=== PATIENT | male | born 1985 | race Caucasian/White ===

== ENCOUNTER 2018-06-05 16:13 | Emergency (ER) | payer MEDICAID ==
--- NOTE | 2018-06-05 16:38 | EDPHY ---
HPI/HX/ROS/PE/MDM Narrative: CLINICAL IMPRESSION: Tender soft tissue mass right anterior thorax ASSESSMENT/PLAN: Patient is a 32-year-old male with no significant medical history who presents for concerns of tender soft tissue mass on his right anterior ribcage. Patient is afebrile and not toxic appearing, no acute distress. Physical exam reveals approximately 1.5 cm mobile, soft, tender soft tissue mass on the right inferior , anterior costal margin. There was no overlying erythema or fluctuance. No findings to suggest systemic infection, cellulitis, abscess, necrotizing skin infection or deep space infection. Query lipoma. Although we do not have one listed, he is well established with the [facility] as they are following abnormal laboratory studies secondary to being on Truvada; we reviewed his laboratory studies which were pertinent for leukocytosis with no left shift, transaminitis and positive cytomegalovirus and Rivera-Atkinson virus. We did not feel that laboratory studies needed to be obtained today. He is also in the process of establishing care with [facility]. He will call both facilities tomorrow morning to schedule follow-up and repeat examination. Return precautions discussed- he will return for fever, redness, swelling, warmth, or streaking around the wound, new lesions, extremity swelling, pain out of proportion or for any other new, worsening or worrisome symptoms. Patient verbalizes understanding and he is in agreement with plan. Case discussed with and patient seen by Dr. Richards. DIFFERENTIAL DX: Abscess, cellulitis, deep space infection, traumatic injury, muscle strain ED COURSE: 6:42 p.m.: Discussed with Dr. Richards 6:45 p.m.: Laboratory studies in patient's records reviewed, last obtained June 01. Patient with a leukocytosis however no left shift. Transaminitis. Positive for cytomegalovirus and Rivera-Atkinson virus. CHIEF COMPLAINT: Palpable tender mass right anterior, inferior chest HPI: Patient is a 32-year-old male with no significant medical history who presents to the emergency department with complaints of a tender palpable mass on his right anterior chest which he noticed yesterday. Patient has never experienced anything like this before, noticed some "swelling" with associated tenderness of what feels like a mass on his right anterior chest. He denies any redness, he has had no fevers or chills. He denies any chest pain, shortness of breath or abdominal pain. He felt that it might be a muscle strain however he does not recall any injury, denies any direct impact or trauma. Patient endorses he is current Lisa being followed by [facility] for PREP therapy which includes Truvada. He was discontinued approximately 2 and half weeks ago from Truvada secondary to abnormal laboratory results. Patient plans to follow up with [facility] this week for continued monitoring of his laboratory studies. PMH: Denies Pertinent Past Surgical History: Denies Family History: Noncontributory Social History: Denies smoking REVIEW OF SYSTEMS: All other systems negative Constitutional: No fever, no chills, appetite change. Eyes: No discharge, vision change ENT: No sore throat, congestion, ear pain. Cardiovascular: No chest pain, no palpitations. Respiratory: No cough, no shortness of breath. Gastrointestinal: No abdominal pain, no vomiting, diarrhea. Genitourinary: No hematuria, dysuria, or increased frequency Musculoskeletal: No back pain, joint swelling, joint pain, myalgias. Skin: No rashes, color change. Neurological: No headache, dizziness, weakness. PHYSICAL EXAM: General Appearance: Alert, oriented, appropriate, cooperative, NAD, well hydrated, non-toxic appearing, VSS, no hypoxia. HEENT: TMs are clear bilaterally no perforation or FB, no injection, no evidence of serous or mucopurulent otitis. Oropharynx clear is no erythema or exudates, no tonsillar hypertrophy or asymmetry. Dentition without abnormality. Eyes: PERRLA, no acute vision change, nystagmus, swelling, discharge, pain or photosensitivity. Conjunctiva pink, no pallor or injection Neck: Supple, nontender, no lymphadenopathy, no midline pain, FROM, no meningismus. Respiratory: There are no retractions, lungs are clear to auscultation. Cardiac: Regular rate and rhythm, no murmurs or gallops. Gastrointestinal: Abdomen is soft, nontender, bowel sounds normal, no masses/ hernia, no rigidity, guarding or focal peritoneal findings. Neurological: Alert and oriented x 3, CN 2-12 grossly intact, normal gait no ataxia, DTR's intact, normal sensation and strength Skin: Warm, dry, no rashes. Right anterior, inferior costal margin there is approximally 1.5 cm soft, mobile tender mass with no overlying erythema, induration and no fluctuance. Musculoskeletal: Extremities are symmetrical, full range of motion, no tenderness, deformity, swelling, or erythema. Psychiatric: Patient is oriented X 3, there is no agitation. PERC criteria Age less than 50, heart rate less than 100, SP a O2 greater than 95%, no unilateral leg swelling, no hemoptysis, no recent surgery or trauma and no hormone use. PERC negative No need for further workup, as <2% chance of PE. MEDICAL DECISION MAKING: Patient was seen with Dr. Richards. Diagnosis: Tender, soft soft tissue mass right chest. Summary: See Assessment and Plan for summary of ED visit Clinical lab tests: NA. Independent visualization of images, tracing, or specimens: NA. Decision to obtain medical records or history from someone other than the patient: No Review / Summarize previous medical records: Yes. Discussed patient with another provider: Yes, Dr. Richards. Patient Progress: Good, stable for discharge to home. (Zeny Hale) ED Course: This patient was seen and examined by me. He presents with a 1.5 cm mobile mass in the subcutaneous tissues over the right anterior lower ribs. No overlying erythema, warmth or tenderness. Likely lipoma, doubt abscess. I agree with the assessment and plan. (Claudia Richards) General Initial Vital Signs: Initial Vital Signs Temperature (C) 36.8 C 06/05/18 16:14 Heart Rate 86 06/05/18 16:14 Respiratory Rate 16 06/05/18 16:14 Blood Pressure 107/53 L 06/05/18 16:14 O2 Sat (%) 98 06/05/18 16:14 O2 Delivery Mode Room Air Allergies/Adverse Reactions: cefaclor [From Ceclor] Allergy (Unknown, Verified 06/05/18 16:20) Home Medications: Medication Instructions Recorded NK [No Known Home Meds] 06/05/18 Departure - Departure Disposition: Home, Routine, Self-Care Clinical Impression: Soft tissue mass Condition: Good Instructions: Soft Tissue Mass (ED) Additional Instructions: DISCHARGE INSTRUCTIONS FROM YOUR DOCTOR Thank you for visiting our emergency department today. Please keep in mind that discharge from the emergency department does not mean that there is nothing wrong - it simply means that we have not identified an emergency condition that requires further evaluation or treatment in the hospital. It is important that you establish care as previously recommended at [facility], please follow-up with [facility] tomorrow morning regarding your test results. For pain control: You may take Tylenol, I recommend 500-1000 mg every 6-8 hours as needed. Take with food and a full glass of water. Stop taking if this is upsetting her stomach. Do not exceed 4000 mg in a 24 hr period. You may also take ibuprofen, recommend 400 mg every 6 hr. Take with food and a full glass of water. Stop taking if this upsets her stomach. Do not exceed 2400 mg in a 24 hr period. People present with illnesses and injuries in different ways, and it is always possible that we have missed something. You may always return for re-evaluation if symptoms worsen or if they are not improving or if you develop new/different symptoms. Again, thank you for choosing our emergency department. We hope that you feel better. Referrals: Erica Saenz, [Doctor of Osteopathy] - As per Instructions
[2018-06-05 16:49] VITALS: BP 107/87
== END 2018-06-05 17:19 | disposition home or self-care (01) ==
DX: R22.2 Localized swelling, mass and lump, trunk (principal)